=== PATIENT | female | born 1960 | race Caucasian/White ===

== ENCOUNTER 2017-02-03 06:29 | Day surgery (SDC) | payer SELFPAY ==
[2017-01-31 14:21] VITALS: BMI 27.1
[2017-02-03] MEDS ORDERED: HEPARIN NA (PORCINE) 5,000 UNITS/ML 1ML VIAL SQ ONE (07:00)
[2017-02-03] MEDS ORDERED: HEPARIN NA (PORCINE) 5,000 UNITS/ML 1ML VIAL ONE (07:11)
[2017-02-03] MEDS ORDERED: BUPIVACAINE HCL/PF 2.5 MG/ML - 30 ML VIAL IJ ONE ×2 (07:30→15:24)
[2017-02-03] MEDS ORDERED: LIDOCAINE HCL 1%, 10 MG/ML (20ML VIAL) ONE ×2 (07:30→10:25)
[2017-02-03] MEDS ORDERED: EPINEPHrine/PF 1 MG/1 ML (1:1,000) AMPULE ONE (07:30)
[2017-02-03] MEDS ORDERED: MIDAZOLAM HCL 2 MG/2 ML SINGLE DOSE VIAL ONE ×3 (07:55→16:22)
[2017-02-03] MEDS ORDERED: PROPOFOL 20 ML ONE ×3 (07:55→15:03)
[2017-02-03] MEDS ORDERED: ROCURONIUM BROMIDE 50 MG/5 ML VIAL ONE ×2 (07:56→08:46)
[2017-02-03] MEDS ORDERED: DEXAMETHASONE SOD PHOSPHATE 4 MG/1 ML VIAL ONE (08:39)
[2017-02-03] MEDS ORDERED: SUCCINYLCHOLINE CHLORIDE 200 MG/10 ML VIAL ONE (08:46)
[2017-02-03] MEDS ORDERED: DESFLURANE GAS 240 ML BOTTLE IH ONE (09:33)
[2017-02-03] MEDS ORDERED: LACTATED RINGERS SOLUTION 1,000 ML IV SCH (13:30)
[2017-02-03] MEDS ORDERED: CLINDAMYCIN PHOSPHATE 600 MG/4 ML VIAL ONE (15:03)
[2017-02-03] MEDS ORDERED: ONDANSETRON 4 MG/2 ML VIAL ONE (15:06)
[2017-02-03] MEDS ORDERED: BUPIVACAINE HCL/PF 0.25% (2.5MG/ML) 10 ML VIAL IJ ONE ×3 (15:10)
[2017-02-03] MEDS: ONDANSETRON 4 MG/2 ML VIAL IVPUSH PRN ×2 (17:54→20:57)
[2017-02-03] MEDS ORDERED: PROMETHAZINE HCL 25 MG/1 ML VIAL ONE (18:26)
[2017-02-03] MEDS ORDERED: PROMETHAZINE HCL 25 MG/1 ML VIAL IVPUSH PRN (18:36)
[2017-02-03] MEDS ORDERED: ENOXAPARIN NA (PORCINE) 40 MG/0.4 ML DISP.SYRIN SQ ONE (20:00)
[2017-02-03] MEDS: CLINDAMYCIN 600MG PREMIX IVPB 50 ML IVPB SCH (20:34)
[2017-02-03] MEDS: ACETAMINOPHEN 325 MG TABLET (FP) PO PRN (20:55)
[2017-02-03] MEDS: oxyCODONE HCL 5 MG TABLET PO PRN (20:56)
[2017-02-04 00:49] VITALS: TEMP 97.9
[2017-02-04] MEDS: oxyCODONE HCL 5 MG TABLET PO PRN ×2 (00:50→05:46)
[2017-02-04] MEDS: CLINDAMYCIN 600MG PREMIX IVPB 50 ML IVPB SCH (01:15)
[2017-02-04 04:32] VITALS: BP 97/65; PULSE 70
[2017-02-04] MEDS: ACETAMINOPHEN 325 MG TABLET (FP) PO PRN (05:47)
--- NOTE | 2017-02-07 09:19 | PATH ---
Surgical Pathology Report Patient Name: ALEXANDREA CARDENAS [facility]. Rec. #: [id number] /Age/Gender: 1960 (Age: 56) / F Account: [id number] Location: [facility] Taken: 02/03/2017 Received: 02/03/2017 Reported: 02/07/2017 Physicians: Dia Hendricks M.D. Specimen(s) Received A: LEFT ABDOMEN SKIN AND FAT B: RIGHT ABDOMEN SKIN AND TISSUE Clinical History Cosmetic Final Diagnosis A. SKIN AND SOFT TISSUE, LEFT ABDOMEN, ABDOMINOPLASTY: UNREMARKABLE SKIN AND SUBCUTANEOUS ADIPOSE TISSUE (GROSS ONLY). B. SKIN AND SOFT TISSUE, RIGHT ABDOMEN, ABDOMINOPLASTY: UNREMARKABLE SKIN AND SUBCUTANEOUS ADIPOSE TISSUE (GROSS ONLY). Electronically Signed Curry Darnell M.D. Gross Description A. Received in formalin labeled "left abdomen skin and fat 632 g," is a 20.5 x 16.5 x 3.0 cm neumann, triangular, unoriented portion of unremarkable skin with underlying yellow, lobulated adipose tissue. Sectioning reveals homogeneous yellow, smooth fat. No lesions are identified. No sections are submitted, gross only. B. Received in formalin labeled "right abdomen skin and fat 593 g," is a 23.0 x 15.5 x 3.0 cm neumann, triangular, unoriented portion of unremarkable skin with underlying yellow, lobulated adipose tissue. Sectioning reveals homogeneous yellow, smooth fat. No lesions are identified. No sections are submitted, gross only. 02/06/201702/06/2017
== END 2017-02-04 11:15 | disposition home or self-care (01) ==
LOC: FASU 06:29 → FM/S 21:05 → FASU 02-04 11:15
PROVIDERS: ATTEND Surgery
PROC: 0J0L3ZZ Alteration of Right Upper Leg Subcutaneous Tissue and Fascia, Percutaneous Approach (ICD-10-PCS; 2017-02-03)
PROC: 0J083ZZ Alteration of Abdomen Subcutaneous Tissue and Fascia, Percutaneous Approach (ICD-10-PCS; 2017-02-03)
PROC: 0J080ZZ Alteration of Abdomen Subcutaneous Tissue and Fascia, Open Approach (ICD-10-PCS; principal; 2017-02-03 08:49)
PROC: 0J0M3ZZ Alteration of Left Upper Leg Subcutaneous Tissue and Fascia, Percutaneous Approach (ICD-10-PCS; 2017-02-03 08:49)
DX: Z41.1 Encounter for cosmetic surgery (principal)
CPT/HCPCS: 88300-TC; 94760; J1644